=== PATIENT | female | born 1985 | race Hispanic/Latino ===

== ENCOUNTER 2020-07-30 00:37 | Inpatient (IN) | payer OTHER ==
[~2020-07-30] VITALS: Ht 154.9 cm; Wt 109.1 kg
[2020-07-30] MEDS ORDERED: METOCLOPRAMIDE 10 MG/2 ML VIAL ONE (01:00)
[2020-07-30] MEDS ORDERED: PANTOPRAZOLE 40 MG/VIAL ONE (01:00)
[2020-07-30] MEDS ORDERED: ONDANSETRON HCL 4 MG/2 ML VIAL ONE (01:00)
[2020-07-30] MEDS ORDERED: FAMOTIDINE/PF 20 MG/2 ML VIAL IV ONE (01:01)
[2020-07-30] MEDS ORDERED: DEXTROSE 50%-WATER 50 ML DISP.SYRIN IV ONE ×2 (01:02→02:17)
[2020-07-30 01:12] LABS: BASOPHILS % (AUTO) 0.3 % (0.0-5.0); HEMATOCRIT 32.7 % (36-48); LYMPHOCYTES % (AUTO) 14.2 % (21.0-51.0); MEAN CORPUSCULAR HEMOGLOBIN 31.1 pg (27.0-33.0); MEAN CORPUSCULAR VOLUME 94.2 fL (79-99); MONOCYTES % (AUTO) 5.5 % (3.0-13.0); NEUTROPHILS % (AUTO) 79.7 % (40.0-77.0); PLATELET COUNT (AUTO) 293 K/uL (130-400); RED BLOOD CELL COUNT(AUTO) 3.47 MIL/uL (4.00-5.50); RED CELL DISTRIBUTION WIDTH 11.5 % (11.0-15.5)
[2020-07-30 01:14] LABS: APPEARANCE,URINE Clear (CLEAR); BILIRUBIN,URINE Negative (NEGATIVE); COLOR,URINE Yellow (YELLOW); GLUCOSE, URINE (UA) 250 mg/dL (NEGATIVE); KETONES,URINE Negative (NEGATIVE); LEUKOCYTE ESTERASE ,URINE Negative (NEGATIVE); NITRATE,URINE Negative (NEGATIVE); OCCULT BLOOD,URINE Large (NEGATIVE); PROTEIN,URINE 300 mg/dL (NEGATIVE); UROBILINOGEN,URINE 0.2 mg/dL (0.2-1.0)
[2020-07-30 01:17] LABS: HCG,QUAL RESULT NEGATIVE (NEGATIVE)
[2020-07-30 01:24] LABS: ALBUMIN 2.9 g/dL (3.5-5.0); BILIRUBIN,TOTAL 0.2 mg/dL (0.2-1.0); CREATININE 1.1 mg/dL (0.5-1.5); POTASSIUM 3.9 mmol/L (3.5-5.1); TOTAL PROTEIN, SERUM 7.5 g/dL (6.0-8.3)
[2020-07-30 01:24] LABS: BACTERIA,URINE Few /HPF (None Seen); WBC,URINE 0-1 /HPF (0-1)
[2020-07-30] MEDS ORDERED: DEXTROSE 5%-LACTATED RINGERS 1,000 ML IV ONE (02:18)
[2020-07-30] MEDS ORDERED: ONDANSETRON HCL 4 MG/2 ML VIAL IV PRN (03:30)
[2020-07-30] MEDS ORDERED: NITROGLYCERIN 0.4 MG SL TAB SL PRN (03:30)
[2020-07-30] MEDS: DEXTROSE 5%-LACTATED RINGERS 1,000 ML IV SCH ×3 (03:30→15:02)
[2020-07-30] MEDS ORDERED: ACETAMINOPHEN 325 MG TAB PO PRN (03:30)
[2020-07-30] MEDS ORDERED: DIPHENHYDRAMINE HCL 25 MG CAPSULE PO PRN (03:30)
[2020-07-30] MEDS ORDERED: DEXTROSE 50%-WATER 50 ML DISP.SYRIN IV PRN (03:30)
[2020-07-30] MEDS ORDERED: GLUCAGON 1MG KIT 1 MG ML IM PRN (03:30)
[2020-07-30 04:46] LABS: HEMATOCRIT 29.8 % (36-48); MEAN CORPUSCULAR HEMOGLOBIN 30.9 pg (27.0-33.0); MEAN CORPUSCULAR HGB CONC 32.6 g/dL (32.0-36.0); MEAN CORPUSCULAR VOLUME 94.9 fL (79-99); PLATELET COUNT (AUTO) 273 K/uL (130-400); RED BLOOD CELL COUNT(AUTO) 3.14 MIL/uL (4.00-5.50); RED CELL DISTRIBUTION WIDTH 11.5 % (11.0-15.5); WHITE BLOOD COUNT (AUTO) 4.9 K/uL (4.8-10.8)
[2020-07-30 05:00] LABS: ALBUMIN 2.5 g/dL (3.5-5.0); BILIRUBIN,TOTAL 0.2 mg/dL (0.2-1.0); CREATININE 1.1 mg/dL (0.5-1.5); MAGNESIUM 2.2 mg/dL (1.80-2.40); POTASSIUM 4.4 mmol/L (3.5-5.1); TOTAL PROTEIN, SERUM 6.6 g/dL (6.0-8.3)
[2020-07-30 05:15] VITALS: BP 166/99
[2020-07-30] MEDS ORDERED: GLYB5TAB8 PO (05:58)
[2020-07-30] MEDS ORDERED: CARV6.2579 PO (06:00)
[2020-07-30] MEDS ORDERED: FERR240T10 PO (06:08)
[2020-07-30] MEDS ORDERED: LOSA100T2 PO (06:08)
[2020-07-30] MEDS ORDERED: FURO-152 PO (06:08)
[2020-07-30] MEDS ORDERED: INSU100V12 SQ (06:08)
[2020-07-30] MEDS ORDERED: INVOK100TB PO (06:08)
[2020-07-30] MEDS ORDERED: ASCO120C2 PO (06:08)
[2020-07-30 06:45] LABS: BAND NEUTROPHILS % (MANUAL) 3 % (0-2); LYMPHOCYTES % (MANUAL) 25 % (22-44); MAN.DIFF COMMENT-IMPRESSION MANUAL DIFFERENTIAL; MONOCYTES % (MANUAL) 4 % (2-9); SEGMENTED NEUTROPHILS % 68 % (40-70)
[2020-07-30 06:46] LABS: PLATELET MORPHOLOGY COMMENT ADEQUATE
[2020-07-30] MEDS: FUROSEMIDE 20 MG TABLET PO SCH (08:26)
[2020-07-30] MEDS: CARVEDILOL 6.25 MG TABLET PO SCH ×2 (08:26→19:45)
[2020-07-30] MEDS: FERROUS GLUCONATE 325 MG TABLET PO SCH ×2 (08:26→19:45)
[2020-07-30] MEDS: FAMOTIDINE 20MG TAB 20 MG TAB PO SCH ×2 (08:27→19:45)
[2020-07-30] MEDS: ENOXAPARIN SODIUM 40 MG/0.4 ML SYRINGE SQ SCH (08:27)
[2020-07-30] MEDS: ASCORBIC ACID 500 MG TAB PO SCH ×2 (08:27→19:45)
[2020-07-30] MEDS: ACETAMINOPHEN 325 MG TAB PO PRN ×3 (08:42→20:16)
[2020-07-30 09:00] VITALS: BP 160/93
[2020-07-30 11:52] VITALS: BP 145/75
--- NOTE | 2020-07-30 15:30 | NUR ---
LACTOSE INTOLERANT pt states she is lactose intolerant changed diet to lactose free
--- NOTE | 2020-07-30 15:45 | NUR ---
BLOOD PRESSURE 166/111 LEFT ARM LOSARTAN 100 MG GIVEN PO PM DOSE
[2020-07-30] MEDS ORDERED: LOSARTAN 100 MG TABLET ONE (15:47)
[2020-07-30] MEDS: LOSARTAN 100 MG TABLET PO SCH (15:47)
[2020-07-30 16:00] VITALS: BP 167/111
--- NOTE | 2020-07-30 17:24 | NUR ---
CLINT NOTE/IA MET WITH PATIENT AND SPOUSE AT BEDSIDE. PER PATIENT, LIVES WITH SPOUSE, 2 CHILDREN AND MOTHER, INDEPENDENT WITH ADLS, NO USE OF DME, NO PROVIDER SERVICES, EMPLOYED, DRIVES, AND FEELS SAFE TO RETURN HOME ONCE DISCHARGED. Addendum: 07/30/20 at 1725 by KAILYN QUINTANA RN CM Amended: Links added.
[2020-07-30 20:11] VITALS: BP 137/74
[2020-07-30 23:48] VITALS: BP 109/62
--- NOTE | 2020-07-31 | NUR ---
PT CONTINUES ON IV FLUIDS. NO DISTRESS NOTED. ABLE TO AMBULATE. STATES MINIMAL WEAKNESS. SHIVERING AT TIMES. HAS OCCASIONAL FEVERS. LOW GRADE. TYLENOL GIVEN FOR HEADACHE AND GENERAL BODY PAIN. PT BS AT 1999 WAS 137. CALL LIGHT IN REACH. BED IN LOW POSITION. NO TELE PACK DUE TO BEING MED SURG STATUS.
[2020-07-31 03:28] VITALS: BP 130/67
[2020-07-31] MEDS: ACETAMINOPHEN 325 MG TAB PO PRN ×2 (03:52→20:37)
[2020-07-31 08:00] VITALS: BP 108/71
[2020-07-31 11:00] VITALS: BP 145/72
[2020-07-31] MEDS: ENOXAPARIN SODIUM 40 MG/0.4 ML SYRINGE SQ SCH (11:53)
[2020-07-31] MEDS: CARVEDILOL 6.25 MG TABLET PO SCH ×2 (11:54→22:09)
[2020-07-31] MEDS: FUROSEMIDE 20 MG TABLET PO SCH (11:54)
[2020-07-31] MEDS: FERROUS GLUCONATE 325 MG TABLET PO SCH ×2 (11:54→22:09)
[2020-07-31] MEDS: ASCORBIC ACID 500 MG TAB PO SCH ×2 (11:54→22:09)
[2020-07-31] MEDS: FAMOTIDINE 20MG TAB 20 MG TAB PO SCH ×2 (11:54→22:09)
[2020-07-31 16:00] VITALS: BP 131/64
[2020-07-31] MEDS: INSULIN HUMULIN R 100 UNIT/ML 3ML SQ SCH ×2 (16:30→21:00)
[2020-07-31 20:06] VITALS: BP 150/86
[2020-07-31] MEDS ORDERED: DIPHENOXYLATE HCL/ATROPINE 2.5/0.025 MG TAB PO ONE (20:30)
[2020-07-31] MEDS: LOSARTAN 100 MG TABLET PO SCH (22:09)
[2020-07-31] MEDS: METRONIDAZOLE 500 MG TABLET PO SCH (22:09)
[2020-07-31] MEDS: LACTATED RINGERS 1000ML 1,000 ML IV SCH (22:11)
[2020-07-31 23:25] VITALS: BP 118/76
--- NOTE | 2020-08-01 | NUR ---
PT SWITCHED TO LR FLUIDS. NO SOB NOTED. PT ABLE TO AMBULATE. SHOWERED. IV PATENT. SPOKE TO THE [facility] ACNP ABOUT HER CONT DIARREAH. CULTURES STILL PENDING, SHE ORDERED LAMOTIL X1 DOSE.
[2020-08-01 03:31] VITALS: BP 142/79
[2020-08-01 05:15] LABS: HEMATOCRIT 26.5 % (36-48); MEAN CORPUSCULAR HEMOGLOBIN 31.2 pg (27.0-33.0); MEAN CORPUSCULAR HGB CONC 31.7 g/dL (32.0-36.0); MEAN CORPUSCULAR VOLUME 98.5 fL (79-99); RED BLOOD CELL COUNT(AUTO) 2.69 MIL/uL (4.00-5.50); RED CELL DISTRIBUTION WIDTH 11.8 % (11.0-15.5); WHITE BLOOD COUNT (AUTO) 4.3 K/uL (4.8-10.8)
[2020-08-01] MEDS: INSULIN HUMULIN R 100 UNIT/ML 3ML SQ SCH ×3 (05:32→16:30)
[2020-08-01] MEDS: LACTATED RINGERS 1000ML 1,000 ML IV SCH ×2 (05:48→16:00)
[2020-08-01 05:49] LABS: ALBUMIN 2.1 g/dL (3.5-5.0); BILIRUBIN,TOTAL 0.1 mg/dL (0.2-1.0); CREATININE 1.3 mg/dL (0.5-1.5); POTASSIUM 3.9 mmol/L (3.5-5.1); TOTAL PROTEIN, SERUM 5.9 g/dL (6.0-8.3)
[2020-08-01] MEDS ORDERED: TORS10TA18 PO (08:43)
[2020-08-01] MEDS: ASCORBIC ACID 500 MG TAB PO SCH (08:47)
[2020-08-01] MEDS: FUROSEMIDE 20 MG TABLET PO SCH (08:47)
[2020-08-01] MEDS: FERROUS GLUCONATE 325 MG TABLET PO SCH (08:47)
[2020-08-01] MEDS: METRONIDAZOLE 500 MG TABLET PO SCH (08:47)
[2020-08-01] MEDS: FAMOTIDINE 20MG TAB 20 MG TAB PO SCH (08:47)
[2020-08-01] MEDS: CARVEDILOL 6.25 MG TABLET PO SCH (08:48)
[2020-08-01] MEDS: ENOXAPARIN SODIUM 40 MG/0.4 ML SYRINGE SQ SCH (08:49)
[2020-08-01 08:51] VITALS: BP 132/76
[2020-08-01] MEDS ORDERED: PANTOPRAZOLE SODIUM 40 MG TABLET.DR PO SCH (09:00)
[2020-08-01 12:30] VITALS: BP 147/83
[2020-08-01] MEDS ORDERED: METRONIDAZOLE 500 MG TABLET PO SCH (15:00)
--- NOTE | 2020-08-01 16:00 | NUR ---
AWAKE AND ALERT, DENIES PAIN OR DISCOMFORT, NO SOB. PT DENIES LOOSE STOOL. UP AD TOMEKA
[2020-08-01] MEDS ORDERED: LEVO112T7 PO (16:41)
[2020-08-01] MEDS ORDERED: HYDR12.54 PO (16:43)
[2020-08-01] MEDS ORDERED: ASCO100031 PO (16:44)
[2020-08-01] MEDS ORDERED: INSU100V12 SQ (16:53)
[2020-08-01] MEDS ORDERED: INVOK100TB PO (17:21)
[2020-08-01] MEDS ORDERED: METR500T PO (17:21)
[2020-08-01] MEDS ORDERED: PIOG30TA10 PO (17:22)
[2020-08-01 17:23] VITALS: BP 146/78
--- NOTE | 2020-08-01 18:00 | NUR ---
DC HOME INSTRUCTIONS GIVEN TO PT, ACKNOWLEDGED ALL INFORMATION, ALL QUESTIONS AND CONCERNS ANSWERED. PT REMINDED TO DIAL 911 OR RETURN TO ER IN CASE OF EMERGENCY. PT ACKNOWLEDGED ALL INFORMATION, AWARE RX SENT ELECTRONICALLY TO PHARMACY. AWAITING FOR TRANSPORTATION
== END 2020-08-01 19:30 | disposition home or self-care (01) | DRG 638 ==
LOC: EDH 00:37 → EDHIP 02:45 → OBSVTOIN 02:45 → 4DH 04:57
PROVIDERS: ADMIT Family Medicine; ATTEND Family Medicine
DX: E11.649 Type 2 diabetes mellitus with hypoglycemia without coma (principal); Z68.42 Body mass index [BMI] 45.0-49.9, adult; N18.30 Chronic kidney disease, stage 3 unspecified; E66.01 Morbid (severe) obesity due to excess calories; E03.9 Hypothyroidism, unspecified; E11.22 Type 2 diabetes mellitus with diabetic chronic kidney disease; E11.319 Type 2 diabetes mellitus with unspecified diabetic retinopathy without macular edema; I12.9 Hypertensive chronic kidney disease with stage 1 through stage 4 chronic kidney disease, or unspecified chronic kidney disease; E11.42 Type 2 diabetes mellitus with diabetic polyneuropathy; Z79.4 Long term (current) use of insulin; Z79.899 Other long term (current) drug therapy; Z82.49 Family history of ischemic heart disease and other diseases of the circulatory system; Z83.3 Family history of diabetes mellitus; Z82.5 Family history of asthma and other chronic lower respiratory diseases; Z88.1 Allergy status to other antibiotic agents
CPT/HCPCS: 36415; 74176; 80053; 81001; 81025; 82948; 83036; 83735; 85025; 85027; 87046; 87177; C9113; G0378; J1650; J2405; J2765; J3490; J7070; J7120

== ENCOUNTER 2024-03-02 11:43 | Emergency (ER) | payer OTHER ==
[~2024-03-02] VITALS: Ht 154.9 cm; Wt 108.9 kg
[~2024-03-02 11:43] MED LIST: ASCO100031 PO; CARV6.2579 PO; FERR240T10 PO; GLYB2.5T6 PO; HYDR12.54 PO; INVOK100TB PO; LEVO112T7 PO; LOSA-420 PO; ONDA-104 PO; PIOG30TA10 PO; SEMA0.258 SQ; TORS10TA18 PO
[2024-03-02 11:56] VITALS: BP 161/86; PULSE 76; RESP 16
[2024-03-02] MEDS ORDERED: IBUP-2077 PO (12:46)
[2024-03-02] MEDS: ACETAMINOPHEN WITH CODEINE 1 TAB TAB PO ONE (13:13)
[2024-03-02] MEDS: KETOROLAC 60 MG VIAL (30MG/ML) IM ONE (13:13)
== END 2024-03-02 13:32 | disposition home or self-care (01) ==
LOC: EDH 11:43
DX: S52.592A Other fractures of lower end of left radius, initial encounter for closed fracture (principal); I10 Essential (primary) hypertension; E11.9 Type 2 diabetes mellitus without complications; E03.9 Hypothyroidism, unspecified; Z79.899 Other long term (current) drug therapy; Z98.890 Other specified postprocedural states; Z88.8 Allergy status to other drugs, medicaments and biological substances; W01.0XXA Fall on same level from slipping, tripping and stumbling without subsequent striking against object, initial encounter; Y93.89 Activity, other specified; Y92.89 Other specified places as the place of occurrence of the external cause; Y99.8 Other external cause status
CPT/HCPCS: 99283; 73110; 29125; 96372; J1885